=== PATIENT | female | born 1990 | race Caucasian/White ===

== ENCOUNTER 2024-06-10 15:14 | Emergency (ER) | payer MEDICAID ==
[~2024-06-10] VITALS: Ht 167.6 cm; Wt 87.0 kg
[2024-06-10 15:30] VITALS: O2SAT 100
[2024-06-10 19:14] VITALS: BP 116/68; PULSE 76; RESP 17; TEMP 37.00296; O2SAT 100
== END 2024-06-10 19:15 | disposition home or self-care (01) ==
LOC: ER 15:14
DX: O03.4 Incomplete spontaneous abortion without complication (principal); R10.2 Pelvic and perineal pain; Z3A.01 Less than 8 weeks gestation of pregnancy; Z98.890 Other specified postprocedural states
CPT/HCPCS: 36415; 76801; 81025; 84702; 99284

== ENCOUNTER 2024-08-21 08:29 | Emergency (ER) | payer MEDICAID ==
[~2024-08-21] VITALS: Ht 165.1 cm; Wt 86.0 kg
[2024-08-21 08:36] VITALS: O2SAT 98
[2024-08-21] MEDS: IBUPROFEN 600MG TABLET PO ONE (10:08)
[2024-08-21 10:51] LABS: CHLORIDE 108 mEq/L (98-107); POTASSIUM 4.7 mEq/L (3.5-5.1); SODIUM 140 mEq/L (136-145)
[2024-08-21 10:52] LABS: CALCIUM 9.3 mg/dL (8.7-10.4); CARBON DIOXIDE 27 mEq/L (21-32)
[2024-08-21 10:57] LABS: CREATININE 0.8 mg/dL (0.6-1.0); GLUCOSE 102 mg/dL (70-105); UREA NITROGEN BLOOD 8 mg/dL (9-23)
[2024-08-21 11:04] LABS: B-HCG QUANTITATIVE 2 mIU/mL (<3)
[2024-08-21 11:07] LABS: BASOPHILS % 0.9 % (0.0-2.0); HEMATOCRIT. 37.6 % (36.0-48.0); HEMOGLOBIN. 12.5 g/dL (12.0-16.0); LYMPHOCYTES % 28.9 % (20.0-50.0); MEAN CORPUSCULAR HGB CONC 33.4 g/dL (31.0-37.0); MEAN CORPUSCULAR VOLUME 92.9 fL (81.0-99.0); MEAN PLATELET VOLUME 9.4 fl (7.4-10.4); MONOCYTES % 4.7 % (2.0-8.0); NEUTROPHILS % 63.5 % (40.0-76.0); PLATELET 272 x1000/uL (130-400); RED BLOOD CELL COUNT 4.04 mill/uL (4.2-5.4); RED CELL DISTRIBUTION WIDTH 13.2 % (11.6-14.6); WHITE BLOOD COUNT 4.5 x1000/uL (4.5-11.0)
[2024-08-21 12:50] VITALS: BP 115/76; PULSE 68; RESP 18; TEMP 36.89184; O2SAT 98
== END 2024-08-21 12:53 | disposition home or self-care (01) ==
LOC: ER 08:29
DX: N93.9 Abnormal uterine and vaginal bleeding, unspecified (principal); Z98.890 Other specified postprocedural states
CPT/HCPCS: 36415; 76830; 76856; 80048; 84702; 85025; 86850; 86900; 99284